=== PATIENT | male | born 1970 ===

== ENCOUNTER 2017-10-28 04:30 | Day surgery (SDC) | payer OTHER ==
[~2017-10-28 04:30] MED LIST: AMBIEN5 MG; PERCOCET 5-3251 EACH PO; TAMS0.4C PO; TRAMADOL HCL50 MG
[2017-10-28] MEDS ORDERED: URIN D.S. TABL1 EACH PO (15:50)
[2017-10-28] MEDS ORDERED: ULTRACET PO (15:51)
== END 2017-10-28 16:05 | disposition home or self-care (01) ==
LOC: CIR.AMB 04:30
DX: N13.2 Hydronephrosis with renal and ureteral calculous obstruction (principal)

== ENCOUNTER → 2018-06-18 | Emergency (ER) | payer OTHER ==
[~2018-06-18] VITALS: Ht 180.3 cm; Wt 116.1 kg
[~2018-06-18] MED LIST changes: +ULTRACET PO; +URIN D.S. TABL1 EACH PO
== END | disposition home or self-care (01) ==
LOC: ER 11:59
DX: N20.1 Calculus of ureter (principal); N43.3 Hydrocele, unspecified